=== PATIENT | female | born 1995 | race African-American/Black ===

== ENCOUNTER 2025-05-13 12:59 | Emergency (ER) | payer MEDICAID ==
[~2025-05-13] VITALS: Ht 149.9 cm; Wt 111.0 kg
[2025-05-13 13:02] VITALS: O2SAT 99
[2025-05-13] MEDS: SODIUM CHLORIDE 0.9% 1,000 ML IV ONE (13:23)
[2025-05-13 14:11] VITALS: BP 141/75; PULSE 73; RESP 18; TEMP 36.9; O2SAT 99
[2025-05-13 14:15] LABS: BASOPHILS % 1.2 % (0.0-2.0); EOSINOPHILS % 1.0 % (0.0-5.0); HEMATOCRIT. 32.1 % (36.0-48.0); HEMOGLOBIN. 9.8 g/dL (12.0-16.0); LYMPHOCYTES % 24.6 % (20.0-50.0); MEAN PLATELET VOLUME 9.0 fl (7.4-10.4); MONOCYTES % 5.4 % (2.0-8.0); NEUTROPHILS % 67.8 % (40.0-76.0); PLATELET 393 x1000/uL (130-400); RED BLOOD CELL COUNT 4.55 mill/uL (4.2-5.4); RED CELL DISTRIBUTION WIDTH 17.5 % (11.6-14.6)
[2025-05-13 14:35] LABS: CREATININE 0.6 mg/dL (0.6-1.0)
[2025-05-13 14:36] LABS: UREA NITROGEN BLOOD 5 mg/dL (9-23)
[2025-05-13 14:37] LABS: ASPARTATE AMINOTRANSFERASE 24 IU/L (<34)
[2025-05-13 14:38] LABS: BILIRUBIN DIRECT < 0.1 mg/dL (<=3.0); BILIRUBIN TOTAL 0.3 mg/dL (0.1-1.0); PROTEIN TOTAL 6.6 g/dL (6.0-8.3)
[2025-05-13 14:41] LABS: ETHANOL BLOOD < 10 mg/dL (<10)
[2025-05-13 14:43] LABS: INR 1.0
[2025-05-13 14:56] LABS: B-HCG QUANTITATIVE 13538 mIU/mL (<6)
[2025-05-15 08:12] LABS: HSV TYPE 2 SPECIFIC AB IGG Reactive (Non Reactive)
== END 2025-05-13 15:01 | disposition short-term general hospital (02) ==
LOC: ER 12:59
DX: O26.893 Other specified pregnancy related conditions, third trimester (principal); R10.9 Unspecified abdominal pain; O10.913 Unspecified pre-existing hypertension complicating pregnancy, third trimester; O99.513 Diseases of the respiratory system complicating pregnancy, third trimester; J45.909 Unspecified asthma, uncomplicated; N89.8 Other specified noninflammatory disorders of vagina; Z3A.32 32 weeks gestation of pregnancy
CPT/HCPCS: 86695; 86696; 80076; 80048; 80320; 84702; 83735; 85025; 85610; 85730; 86850; 86900; 86901; 87340; 86592; 36415; 76815; 99291; J7030; Z7610; G0480